=== PATIENT | male | born 1990 | race African-American/Black ===

== ENCOUNTER 2025-01-02 18:04 | Emergency (ER) | payer OTHER ==
[2025-01-02 18:07] VITALS: BP 125/67; PULSE 65; RESP 18; TEMP 98.1; BMI 21.1
[2025-01-04 20:10] LABS: HCV DIAGNOSTIC IN-HOUSE W/RFLX NON-REACTIVE (NONREACTIVE)
[2025-01-04 20:28] LABS: HIV INTERPRETATION NEGATIVE (NEGATIVE)
== END 2025-01-02 18:58 | disposition home or self-care (01) ==
LOC: JERFT 18:04
DX: Z11.4 Encounter for screening for human immunodeficiency virus [HIV] (principal); Z48.02 Encounter for removal of sutures
CPT/HCPCS: 36415; 86803; 87389; 99283-25